=== PATIENT | female | born 1990 | race Caucasian/White ===

== ENCOUNTER 2018-05-19 06:33 | Observation (INO) ==
[2018-05-19] MEDS ORDERED: Chlorhexidine Gluconate 2% 1 Pack (2 Cloths) TOPICAL ONE (07:15)
[2018-05-19] MEDS ORDERED: Sodium Chlor 0.9% Inj 500 ML IV.CONT ONE (07:15)
[2018-05-19] MEDS ORDERED: Metoprolol Tartrate 25 MG Tablet PO ONE (07:15)
[2018-05-19] MEDS ORDERED: Neostigmine Inj 5 MG/5 ML Syringe IV.PUSH ONE (07:59)
[2018-05-19] MEDS ORDERED: Glycopyrrolate Inj 1 MG/5 ML Syringe IV.PUSH ONE (07:59)
[2018-05-19] MEDS ORDERED: Lidocaine PF 1% Inj 5 ML Syringe OTHER ONE (07:59)
[2018-05-19] MEDS ORDERED: fentaNYL Citrate Inj 100 MCG/2 ML Ampul ONE ×2 (08:20)
[2018-05-19] MEDS ORDERED: EPINEPHRINE 0.1% EACH NARE ONE ×2 (08:23)
[2018-05-19] MEDS ORDERED: Lidocaine 1%/Epinephrine 1:100,000 Inj 50 ML Vial INFILTRATN ONE (08:30)
[2018-05-19] MEDS ORDERED: *morphine SULFATE 4 MG/ML PERIprocedure ONLY ONE (09:12)
[2018-05-19] MEDS ORDERED: *Ondansetron Inj 4 MG/2 ML Vial PERIprocedural Use ONLY ONE (09:17)
[2018-05-19] MEDS ORDERED: *Promethazine Inj 25 MG/ML Vial PERIprocedural use ONLY ONE (10:16)
--- NOTE | 2018-05-19 10:56 | MP ---
cc: Wilman Gomez MD DATE OF OPERATION: 05/19/2018 PREOPERATIVE DIAGNOSES: 1. Chronic nasal obstruction. 2. Turbinate hypertrophy. 3. Chronic tonsillitis. POSTOPERATIVE DIAGNOSES: 1. Chronic nasal obstruction. 2. Turbinate hypertrophy. 3. Chronic tonsillitis. PROCEDURES PERFORMED: 1. Open septal reconstruction. 2. Bilateral inferior turbinectomy. 3. Tonsillectomy. ANESTHESIA: General anesthesia. ESTIMATED BLOOD LOSS: 25 mL. COMPLICATIONS: No complications. OPERATING SURGEON: Wilman Gomez MD. PROCEDURE: Prepped and draped in usual fashion. Then, 1% Xylocaine with 1:100,000 epinephrine injected into the nasal septum and inferior turbinates bilaterally; 1:100,000 adrenaline-soaked pledgets were placed and then removed. Once this was achieved, a mucoperichondrial incision was made on the left side of the nose and the mucoperichondrial flap was elevated. A significant amount of bone and cartilage was removed to improve the nasal airway and reduce the nasal fracture. Perichondrial flap was reapproximated and sutured in place with interrupted chromic stitch. Using the Coblator probe, significant reduction of the inferior turbinate was performed submucosally bilaterally. No active bleeding noted. Autumn-Lonnie were opened and gained access to oral cavity so that tonsillectomy can be performed. Curved Allis clamp used to medialize the left tonsil. Anterior tonsillar pillar incision made with electrocautery and tonsil removed in a plane between the capsule and underlying muscle. Adequate hemostasis was obtained with suction electrocautery. In a similar fashion on the opposite side, anterior tonsillar pillar incision made. Tonsil removed in a plane between the capsule and underlying muscle with electrocautery. No active bleeding noted. Autumn-Lonnie released and reopened. No bleeding noted. The patient tolerated the procedure well. MD RICH King/sb , 09:48 AM , 09:55 AM
[2018-05-19] MEDS: Morphine Sulfate Inj 2 MG/ML Vial IV.PUSH PRN ×2 (13:46→17:44)
[2018-05-19] MEDS ORDERED: Morphine Sulfate Inj 2 MG/ML Vial IV.PUSH PRN (14:06)
[2018-05-19] MEDS ORDERED: Acetaminophen-HYDROcodone 325/7.5 Liq 15 ML UDC PO PRN (14:08)
[2018-05-19] MEDS ORDERED: Sodium Chloride 0.9% 2 ML Flush PRN IV.FLUSH (15:51)
[2018-05-19] MEDS ORDERED: Promethazine 25 MG Supp RECTAL PRN (16:01)
[2018-05-19] MEDS: Sodium Chloride 0.9% 2 ML Flush BID IV.FLUSH SCH (20:16)
[2018-05-19] MEDS: Acetaminophen-HYDROcodone 325/7.5 Liq 15 ML UDC PO PRN (22:06)
[2018-05-20] MEDS: Acetaminophen-HYDROcodone 325/7.5 Liq 15 ML UDC PO PRN ×3 (03:43→11:54)
[2018-05-20] MEDS: Sodium Chloride 0.9% 2 ML Flush BID IV.FLUSH SCH (11:55)
[2018-05-20 12:27] VITALS: BP 101/55; PULSE 105; RESP 16; TEMP 98.9; O2SAT 97
== END 2018-05-20 14:41 | disposition home or self-care (01) ==
LOC: HSDC 06:33 → N07 06:33
PROVIDERS: ADMIT Specialist; ATTEND Specialist
DX: X58.XXXA Exposure to other specified factors, initial encounter; J34.3 Hypertrophy of nasal turbinates; J34.89 Other specified disorders of nose and nasal sinuses; S02.2XXA Fracture of nasal bones, initial encounter for closed fracture; J35.01 Chronic tonsillitis
CPT/HCPCS: 84702; 88304; 96374; 96375; 96376; G0378; J0131; J1100; J2270; J2405; J2550; J2704; J2710; J3010; J7120; Q0169